=== PATIENT | male | born 1945 | race Caucasian/White ===

== ENCOUNTER → 2019-07-28 13:43 | Outpatient (BNVA) | payer MEDICARE, OTHER, SELFPAY | PROVIDERS: Family Provider Obstetrics & Gynecology; PCP Obstetrics & Gynecology; Visit Provider Anesthesiology | DX: M47.817 Spondylosis without myelopathy or radiculopathy, lumbosacral region (principal); M79.651 Pain in right thigh; M79.652 Pain in left thigh; F17.210 Nicotine dependence, cigarettes, uncomplicated; Z79.891 Long term (current) use of opiate analgesic; Z71.6 Tobacco abuse counseling | CPT/HCPCS: 99214 ==

== ENCOUNTER → 2019-09-10 13:15 | Outpatient (BNVA) | payer MEDICARE, OTHER, SELFPAY | PROVIDERS: Family Provider Obstetrics & Gynecology; PCP Obstetrics & Gynecology; Visit Provider Anesthesiology | DX: Z76.89 Persons encountering health services in other specified circumstances (principal) | CPT/HCPCS: 99213 ==

== ENCOUNTER → 2019-11-18 13:18 | Outpatient (BNVA) | payer MEDICARE, OTHER, SELFPAY | PROVIDERS: Family Provider Obstetrics & Gynecology; PCP Obstetrics & Gynecology; Visit Provider Anesthesiology | DX: M54.42 Lumbago with sciatica, left side (principal); M47.817 Spondylosis without myelopathy or radiculopathy, lumbosacral region; M54.9 Dorsalgia, unspecified; F17.210 Nicotine dependence, cigarettes, uncomplicated; Z79.891 Long term (current) use of opiate analgesic; Z71.6 Tobacco abuse counseling | CPT/HCPCS: 99214 ==

== ENCOUNTER → 2020-01-04 10:17 | Outpatient (BNVA) | payer MEDICARE, OTHER, SELFPAY | PROVIDERS: Family Provider Obstetrics & Gynecology; PCP Obstetrics & Gynecology; Visit Provider Anesthesiology | DX: M54.42 Lumbago with sciatica, left side (principal); M47.817 Spondylosis without myelopathy or radiculopathy, lumbosacral region; M54.9 Dorsalgia, unspecified; F17.210 Nicotine dependence, cigarettes, uncomplicated; Z79.891 Long term (current) use of opiate analgesic; Z71.6 Tobacco abuse counseling | CPT/HCPCS: 99214 ==

== ENCOUNTER → 2020-03-08 10:06 | Outpatient (BNVA) | payer MEDICARE, OTHER, SELFPAY | PROVIDERS: Family Provider Obstetrics & Gynecology; PCP Obstetrics & Gynecology; Visit Provider Anesthesiology | DX: M47.817 Spondylosis without myelopathy or radiculopathy, lumbosacral region (principal); M54.9 Dorsalgia, unspecified; F17.210 Nicotine dependence, cigarettes, uncomplicated; Z79.891 Long term (current) use of opiate analgesic; Z71.6 Tobacco abuse counseling | CPT/HCPCS: 99214 ==

== ENCOUNTER → 2020-04-06 10:03 | Outpatient (BNVA) | payer MEDICARE, OTHER, SELFPAY | PROVIDERS: Family Provider Obstetrics & Gynecology; PCP Obstetrics & Gynecology; Visit Provider Anesthesiology | DX: G89.29 Other chronic pain (principal); M54.42 Lumbago with sciatica, left side; M47.817 Spondylosis without myelopathy or radiculopathy, lumbosacral region; M54.9 Dorsalgia, unspecified; M96.1 Postlaminectomy syndrome, not elsewhere classified; F17.210 Nicotine dependence, cigarettes, uncomplicated; Z79.891 Long term (current) use of opiate analgesic; Z71.6 Tobacco abuse counseling | CPT/HCPCS: 62323; 99212; 99213; J1040; J3490 ==

== ENCOUNTER → 2020-06-01 10:28 | Outpatient (BNVA) | payer MEDICARE, OTHER, SELFPAY | PROVIDERS: Family Provider Obstetrics & Gynecology; PCP Obstetrics & Gynecology; Visit Provider Anesthesiology | DX: M54.42 Lumbago with sciatica, left side (principal); M47.817 Spondylosis without myelopathy or radiculopathy, lumbosacral region; M96.1 Postlaminectomy syndrome, not elsewhere classified; F17.210 Nicotine dependence, cigarettes, uncomplicated; Z71.6 Tobacco abuse counseling; Z79.891 Long term (current) use of opiate analgesic | CPT/HCPCS: 99214 ==

== ENCOUNTER → 2020-07-27 10:53 | Outpatient (BNVA) | payer MEDICARE, OTHER, SELFPAY | PROVIDERS: Family Provider Obstetrics & Gynecology; PCP Obstetrics & Gynecology; Visit Provider Anesthesiology | DX: M54.42 Lumbago with sciatica, left side (principal); M47.817 Spondylosis without myelopathy or radiculopathy, lumbosacral region; M96.1 Postlaminectomy syndrome, not elsewhere classified; F17.210 Nicotine dependence, cigarettes, uncomplicated; Z79.891 Long term (current) use of opiate analgesic | CPT/HCPCS: 99213 ==

== ENCOUNTER → 2020-10-03 13:37 | Outpatient (BNVA) | payer MEDICARE, OTHER, SELFPAY | PROVIDERS: Family Provider Obstetrics & Gynecology; PCP Obstetrics & Gynecology; Visit Provider Anesthesiology | DX: M54.42 Lumbago with sciatica, left side (principal); M47.817 Spondylosis without myelopathy or radiculopathy, lumbosacral region; M96.1 Postlaminectomy syndrome, not elsewhere classified; F17.210 Nicotine dependence, cigarettes, uncomplicated; Z79.891 Long term (current) use of opiate analgesic | CPT/HCPCS: 99213 ==

== ENCOUNTER → 2020-11-30 14:02 | Outpatient (BNVA) | payer MEDICARE, OTHER, SELFPAY | PROVIDERS: Family Provider Obstetrics & Gynecology; PCP Obstetrics & Gynecology; Visit Provider Anesthesiology | DX: M54.42 Lumbago with sciatica, left side (principal); M47.817 Spondylosis without myelopathy or radiculopathy, lumbosacral region; M96.1 Postlaminectomy syndrome, not elsewhere classified; F17.210 Nicotine dependence, cigarettes, uncomplicated; Z79.891 Long term (current) use of opiate analgesic | CPT/HCPCS: 99213 ==

== ENCOUNTER 2020-12-08 14:50 | Outpatient (CLI) | payer MEDICARE, OTHER, SELFPAY ==
--- NOTE | 2020-12-08 15:00 | CT_ITS ---
WS: [id number] CT LUMBAR SPINE TECHNIQUE: Noncontrast CT of the lumbar spine with coronal and sagittal reformatted images. CLINICAL INFORMATION: M47.817 - Spondylosis without myelopathy or radiculopathy... COMPARISON: CT 3 15,019 DLP: All CT scans at [facility] use at least one of these dose optimization techniques: automat ed exposure control; mA and/or kV adjustment per patient size (includes targeted exams where dose is matched to clinical indication); or iterative reconstruction. FINDINGS: Mild lumbar curve convex left. No acute compression fractures. Osteopenia. Prior postoperative change s pedicle screw fixation with interbody fusion grafts L3-L5. Fusion grafts appears solid with interbo dy and dorsal lateral bony fusion. Interconnecting rods appear intact. No evidence of hardware loosen ing. Associated large laminectomy defects. Advanced degenerative disc disease worse at L1-2 with vacuum disc phenomenon and disc desiccation. Pr ominent bridging bulky osteophyte at left L1 progressed compared to previous. Anterior and lateral fl owing osteophytes throughout the lumbar spine. New bony ankylosis/fusion of the L2-3 disc space since the prior examination. L1-L2: Disc osteophyte complex with vacuum disc phenomenon. Mild central canal stenosis with slight i mpingement on the right greater than left subarticular recess. Moderate to advanced facet arthropathy . Moderate to severe left foraminal narrowing with impingement on the exiting left L1 nerve root. Mil d right foraminal narrowing. Left foraminal narrowing is progressed compared to previous. L2-L3: Fusion/ankylosis across the L2-3 disc space is new compared to previous with solid-appearing b allyson fusion. Advanced facet arthropathy with mild circumferential central canal stenosis. Ligament fla vum hypertrophy. Narrowing of the right subarticular recess. Mild left and no significant right hector inal narrowing L3-L4: Pedicle screw fixation with interbody fusion. Dorsal lateral bony fusion. Laminectomy defects. Spinal canal is patent. Mild left foraminal narrowing. L4-L5: Pedicle screw fixation. Interbody and dorsal lateral bony fusion. Laminectomy defects. Spinal canal and foramen are patent. L5-S1: Prior postoperative changes pedicle screw fixation with interbody bony fusion. Dorsal lateral bony fusion. Moderate facet arthropathy. Spinal canal and foramen are patent. Laminectomy defects. Right sacroiliac fusion. Adrenal glands are normal. Normal visualized abdominal aorta. CT/CT lumbar spine wo con* [id number] IMPRESSION: 1. Pedicle screw fixation L3-L5 with solid-appearing interbody fusion grafts a nd dorsal lateral bony fusion. 2. No evidence of hardware loosening. Interconnecting rods appear intact. 3. Since the prior examination bony fusion or ankylosis across the L2-3 disc s pace which appears solid. Posterior element fusion. 4. Advanced disc space narrowing L1-2 with vacuum disc phenomenon. Bulky bridg ing left lateral osteophyte is progressed compared to the prior examination. 5. Mild central canal stenosis L1-2 impinges the right subarticular recess and traversing right L2 nerve root. 6. Moderate to severe left L1-2 foraminal narrowing progressed compared to pre vious with impingement on the exiting left L1 nerve root. Recommend correlation left L1 nerve root symptoms. 7. Mild central canal stenosis L2-3 due to osteophytic ridging with facet art hropathy and ligamentum flavum hypertrophy. Narrowing of the right subarticular recess with impingement on traversing right L3 nerve root. Mild left foraminal narrowing at this level. 8. Spinal canal is decompressed at the fusion levels L3-L5.
== END 2020-12-08 14:51 | disposition home or self-care (01) ==
LOC: RADWPI 14:50
PROVIDERS: PCP Obstetrics & Gynecology; Visit Provider Anesthesiology
DX: M47.817 Spondylosis without myelopathy or radiculopathy, lumbosacral region (principal); M54.5 Low back pain; M48.061 Spinal stenosis, lumbar region without neurogenic claudication
CPT/HCPCS: 72131

== ENCOUNTER → 2021-01-24 12:57 | Outpatient (BNVA) | payer MEDICARE, OTHER, SELFPAY | PROVIDERS: PCP Obstetrics & Gynecology; Visit Provider Anesthesiology | DX: M54.42 Lumbago with sciatica, left side (principal); M47.817 Spondylosis without myelopathy or radiculopathy, lumbosacral region; M96.1 Postlaminectomy syndrome, not elsewhere classified; Z79.891 Long term (current) use of opiate analgesic | CPT/HCPCS: 99213 ==

== ENCOUNTER → 2021-03-27 12:58 | Outpatient (BNVA) | payer MEDICARE, OTHER, SELFPAY | PROVIDERS: PCP Obstetrics & Gynecology; Visit Provider Anesthesiology | DX: M47.817 Spondylosis without myelopathy or radiculopathy, lumbosacral region (principal); M96.1 Postlaminectomy syndrome, not elsewhere classified; F17.210 Nicotine dependence, cigarettes, uncomplicated; Z79.891 Long term (current) use of opiate analgesic | CPT/HCPCS: 99213 ==